=== PATIENT | male | born 1945 | race Two or more races ===

== ENCOUNTER 2024-10-07 18:45 | Inpatient (IN) | payer MEDICARE, OTHER ==
[~2024-10-07] VITALS: Ht 180.3 cm; Wt 81.6 kg
[~2024-10-07 18:45] MED LIST: POVI1MED TP
[2024-10-07 20:00] VITALS: O2SAT 98
[2024-10-07 20:50] LABS: BASOPHILS % (AUTO) 0.5 % (0.0-2.0); EOSINOPHILS % (AUTO) 0.7 % (0.0-6.0); HEMATOCRIT 35 % (39-51); HEMOGLOBIN 11.6 g/dL (13.5-17.5); LYMPHOCYTES # (AUTO) 1.8 K/uL (0.8-4.8); LYMPHOCYTES % (AUTO) 28.2 % (20.0-44.0); MEAN CORPUSCULAR HEMOGLOBIN 33 PG (26.0-33.0); MEAN CORPUSCULAR HGB CONC 34 g/dl (31.0-36.0); MEAN CORPUSCULAR VOLUME 97 fL (80-96); MONOCYTES # (AUTO) 0.4 K/uL (0.1-1.30); MONOCYTES % (AUTO) 6.2 % (2.0-12.0); NEUTROPHILS # (AUTO) 4.1 K/uL (1.8-8.9); NEUTROPHILS % (AUTO) 64.4 % (43.0-81.0); PLATELET COUNT (AUTO) 235 K/uL (150-450); RED BLOOD CELL COUNT(AUTO) 3.55 MIL/uL (4.5-6.0); WHITE BLOOD COUNT (AUTO) 6.4 K/uL (4.3-11.0)
[2024-10-07 21:06] LABS: ALANINE AMINOTRANSFERASE 46 U/L (12-78); ALBUMIN 3.4 g/dL (3.4-5.0); ALCOHOL, BLOOD < 3 mg/dL (0-10); ALKALINE PHOSPHATASE 77 U/L (46-116); ASPARTATE AMINOTRANSFERASE 33 U/L (15-37); BILIRUBIN,DIRECT 0.2 mg/dL (0.0-0.2); BILIRUBIN,TOTAL 0.4 mg/dL (0.2-1.0); CALCIUM, SERUM 8.7 mg/dL (8.5-10.1); CARBON DIOXIDE 28 mmol/L (21-32); CHLORIDE 104 mmol/L (98-107); CREATININE 1.2 mg/dL (0.6-1.3); GLUCOSE 101 mg/dL (74-106); POTASSIUM 4.1 mmol/L (3.5-5.1); SODIUM SERUM 138 mmol/L (136-145); TOTAL PROTEIN, SERUM 7.8 g/dL (6.4-8.2); UREA NITROGEN, BLOOD 33 mg/dL (7-18)
[2024-10-07 21:08] LABS: ACETAMINOPHEN <10 ug/ml (10-30); SALICYLATE 1.3 mg/dL (2.8-20.0)
[2024-10-07 22:13] LABS: APPEARANCE,URINE CLEAR (CLEAR); BILIRUBIN,URINE NEGATIVE (NEGATIVE); BLOOD, URINE TRACE-INTA Ery/uL (NEGATIVE); COLOR,URINE YELLOW (YELLOW); KETONES,URINE NEGATIVE (NEGATIVE); LEUKOCYTE ESTERASE ,URINE NEGATIVE (NEGATIVE); NITRITE, URINE NEGATIVE (NEGATIVE); PROTEIN,URINE NEGATIVE (NEGATIVE); UGLUCOSE NEGATIVE (NEGATIVE); UROBILINOGEN,URINE 0.2 EU/dL (0.2)
[2024-10-07 22:28] LABS: AMPHETAMINE, URINE NEGATIVE (NEGATIVE); BARBITURATE, URINE NEGATIVE (NEGATIVE); BENZODIAZEPINE, URINE NEGATIVE (NEGATIVE); CANNABINOID, URINE NEGATIVE (NEGATIVE); COCCAINE, URINE NEGATIVE (NEGATIVE); OPIATE, URINE NEGATIVE (NEGATIVE); PHENCYCLIDINE SCREEN,URINE NEGATIVE (NEGATIVE)
[2024-10-07 22:56] LABS: ADD URINE CULTURE NO; BACTERIA,URINE None seen /HPF (None Seen); RBC,URINE 0-2 /HPF (0-2); SQUAMOUS EPITHELIAL CELL,UR None Seen /HPF (None Seen); WBC,URINE NONE SEEN /HPF (0-3)
[2024-10-08] MEDS ORDERED: MAGNESIUM HYDROXIDE 30 ML UDC PO PRN (02:30)
[2024-10-08] MEDS ORDERED: ACETAMINOPHEN ES 500 MG TABLET PO PRN (02:30)
[2024-10-08] MEDS ORDERED: ZOLPIDEM TARTRATE 5 MG TABLET PO PRN (02:30)
[2024-10-08] MEDS ORDERED: ACETAMINOPHEN 325 MG TABLET PO PRN ×2 (02:30)
[2024-10-08] MEDS ORDERED: MAG HYDROX/AL HYDROX/SIMETH 30 ML UDC PO PRN (02:30)
[2024-10-08] MEDS: BLOOD SUGAR DIAGNOSTIC 1 EACH STRIP IN ONE (03:00)
[2024-10-08] MEDS ORDERED: QUETIAPINE FUMARATE 25 MG TABLET PO PRN (06:00)
[2024-10-08] MEDS ORDERED: ACET-2030 PO (07:39)
[2024-10-08] MEDS ORDERED: FOLI0.8T3 PO (07:39)
[2024-10-08] MEDS ORDERED: ASCO500T10 PO (07:39)
[2024-10-08] MEDS ORDERED: TAMS-12 PO (07:39)
[2024-10-08] MEDS ORDERED: ACET325T53 PO (07:39)
[2024-10-08] MEDS ORDERED: CYAN-51 PO (07:39)
[2024-10-08] MEDS ORDERED: ATOR40TA PO (07:39)
[2024-10-08] MEDS ORDERED: ENOX40DI9 SQ (07:39)
[2024-10-08] MEDS ORDERED: ASPI-1169 PO (07:39)
[2024-10-08] MEDS ORDERED: POLY17PO4 PO (07:39)
[2024-10-08] MEDS ORDERED: MEMA5TAB PO (07:39)
[2024-10-08] MEDS ORDERED: LISI30TA4 PO (07:39)
[2024-10-08 08:00] VITALS: BP 121/63; TEMP 97.9; O2SAT 99
[2024-10-08] MEDS: LISINOPRIL (10MG) 10 MG TABLET PO SCH (08:46)
[2024-10-08] MEDS: ASPIRIN 81 MG TAB.CHEW PO SCH (08:47)
[2024-10-08] MEDS: MEMANTINE HCL 5 MG TABLET PO SCH (08:47)
[2024-10-08] MEDS: FOLIC ACID 1 MG TABLET PO SCH (08:47)
[2024-10-08] MEDS: ASCORBIC ACID 500 MG TABLET PO SCH (08:47)
[2024-10-08] MEDS: CYANOCOBALAMIN 500 MCG TABLET PO SCH (08:48)
[2024-10-08] MEDS: ENOXAPARIN SODIUM 40 MG/0.4 ML DISP.SYRIN SQ SCH (08:53)
[2024-10-08 16:00] VITALS: BP 110/64; TEMP 98.7; O2SAT 100
[2024-10-08] MEDS: LORAZEPAM 1 MG TABLET PO PRN (18:31)
[2024-10-08 19:53] VITALS: BP 107/69; TEMP 98.3; O2SAT 100
[2024-10-08] MEDS: TAMSULOSIN 0.4 MG CAP.SR.24H PO SCH (21:24)
[2024-10-08] MEDS: ATORVASTATIN 40 MG TABLET PO SCH (21:25)
[2024-10-08] MEDS: POLYETHYLENE GLYCOL 3350 17 GM POWD.PACK PO SCH (21:25)
[2024-10-08] MEDS: DIVALPROEX SODIUM 125 MG CAP.SPRINK PO SCH (21:25)
[2024-10-09 08:00] VITALS: BP 140/73; TEMP 98.1; O2SAT 98
[2024-10-09] MEDS: ESCITALOPRAM OXALATE (10 MG) 10 MG TABLET PO SCH (08:18)
[2024-10-09 16:00] VITALS: BP 99/60; TEMP 97.9; O2SAT 98
[2024-10-09 16:02] LABS: CREATININE 1.1 mg/dL (0.6-1.3)
[2024-10-09 16:07] LABS: ALBUMIN 2.9 g/dL (3.4-5.0); BILIRUBIN,TOTAL 0.3 mg/dL (0.2-1.0); CALCIUM, SERUM 8.8 mg/dL (8.5-10.1); CREATININE 1.1 mg/dL (0.6-1.3); POTASSIUM 4.6 mmol/L (3.5-5.1); TOTAL PROTEIN, SERUM 6.9 g/dL (6.4-8.2)
[2024-10-09 16:09] LABS: CHOLESTEROL 72 mg/dL (<200); HDL CHOLESTEROL 43 mg/dL (40-60); LDL 41 mg/dL (0-99); TRIGLYCERIDES 44 mg/dL (30-150)
[2024-10-09 20:27] VITALS: BP 136/74; TEMP 97.9; O2SAT 99
[2024-10-10 08:00] VITALS: BP 146/67; TEMP 97.7; O2SAT 100
[2024-10-10 16:00] VITALS: BP 107/63; TEMP 97.8; O2SAT 97
[2024-10-10 20:52] VITALS: BP 136/68; TEMP 97.8; O2SAT 98
[2024-10-11 08:00] VITALS: BP 112/65; TEMP 97.8; O2SAT 99
[2024-10-11 16:00] VITALS: BP 123/73; TEMP 98.1; O2SAT 100
[2024-10-11 20:36] VITALS: BP 108/59; TEMP 98.1; O2SAT 97
[2024-10-12 08:00] VITALS: BP 112/67; TEMP 98.6; O2SAT 97
[2024-10-12 16:00] VITALS: BP 100/58; TEMP 98.7; O2SAT 100
[2024-10-12 20:00] VITALS: BP 107/59; TEMP 98.8; O2SAT 99
[2024-10-13 08:00] VITALS: BP 100/57; TEMP 98.6; O2SAT 98
[2024-10-13] MEDS: DIVALPROEX SODIUM 125 MG CAP.SPRINK PO SCH (13:52)
[2024-10-13 16:00] VITALS: BP 107/68; TEMP 98.7; O2SAT 98
[2024-10-13 20:00] VITALS: BP 100/48; TEMP 98.1; O2SAT 98
[2024-10-14 08:00] VITALS: BP 113/73; TEMP 97.9; O2SAT 99
[2024-10-14 16:00] VITALS: BP 101/61; TEMP 97.8; O2SAT 100
[2024-10-14 20:00] VITALS: BP 92/50; TEMP 98; O2SAT 100
[2024-10-15 08:00] VITALS: BP 99/67; TEMP 97.6; O2SAT 98
[2024-10-15 16:00] VITALS: BP 100/59; TEMP 98; O2SAT 98
[2024-10-15] MEDS: MEMANTINE HCL 5 MG TABLET PO SCH (17:00)
[2024-10-15 20:00] VITALS: BP 128/69; TEMP 98.4; O2SAT 98
[2024-10-16 08:00] VITALS: BP 132/78; TEMP 98.2; O2SAT 100
[2024-10-16] MEDS: OLANZAPINE 10 MG VIAL IM ONE (09:19)
[2024-10-16] MEDS: DIVALPROEX SODIUM 125 MG CAP.SPRINK PO SCH (13:00)
[2024-10-16 16:00] VITALS: BP 138/79; TEMP 97.8; O2SAT 97
[2024-10-16 20:33] VITALS: BP 121/58; TEMP 98.1; O2SAT 100
[2024-10-16] MEDS: QUETIAPINE FUMARATE 25 MG TABLET PO SCH (21:00)
[2024-10-17 08:00] VITALS: BP_SYST 104; BP_SYST 115; BP_DIAS 60; BP_DIAS 85; TEMP 97.7; TEMP 98.8; O2SAT 95; O2SAT 96
[2024-10-17 20:41] VITALS: BP 117/64; TEMP 98.3; O2SAT 98
[2024-10-17] MEDS: QUETIAPINE FUMARATE 25 MG TABLET PO SCH (21:32)
[2024-10-18 08:00] VITALS: BP 131/79; TEMP 98.7; O2SAT 100
[2024-10-18 12:00] VITALS: BP 100/58; TEMP 98; O2SAT 98
[2024-10-18 20:18] VITALS: BP 126/60; TEMP 98; O2SAT 98
[2024-10-19 08:00] VITALS: BP 113/59; TEMP 98.7; O2SAT 97
[2024-10-19] MEDS: QUETIAPINE FUMARATE 25 MG TABLET PO SCH ×2 (09:24→21:19)
[2024-10-19 16:00] VITALS: BP 117/61; TEMP 98.1; O2SAT 100
[2024-10-19 20:15] VITALS: BP 125/54; TEMP 98.4; O2SAT 99
[2024-10-20 08:00] VITALS: BP 125/75; TEMP 98.6; O2SAT 99
[2024-10-20 16:00] VITALS: BP 100/60; TEMP 98.6; O2SAT 99
[2024-10-20 20:13] VITALS: BP 118/56; TEMP 98.4; O2SAT 100
[2024-10-21 08:00] VITALS: BP 135/67; TEMP 97.5; O2SAT 100
[2024-10-21 08:18] VITALS: BP 135/67
== END 2024-10-21 14:30 | DRG 885 ==
LOC: ER 18:49 → GPS 10-08 01:22
PROVIDERS: ADMIT Psychiatry & Neurology Psychiatry; ATTEND Internal Medicine
DX: F39 Unspecified mood [affective] disorder (principal); F03.911 Unspecified dementia, unspecified severity, with agitation; F03.92 Unspecified dementia, unspecified severity, with psychotic disturbance; G93.40 Encephalopathy, unspecified; N40.0 Benign prostatic hyperplasia without lower urinary tract symptoms; E78.5 Hyperlipidemia, unspecified; D63.8 Anemia in other chronic diseases classified elsewhere; E11.9 Type 2 diabetes mellitus without complications; I11.9 Hypertensive heart disease without heart failure; Z91.81 History of falling; Z91.199 Patient's noncompliance with other medical treatment and regimen due to unspecified reason; M50.30 Other cervical disc degeneration, unspecified cervical region
CPT/HCPCS: 36415; 80048-TC; 80053-TC; 80061-TC; 80076-TC; 80164-TC; 81001; 82565-TC; 82962-TC; 85025-TC; 87081-TC; G0480; J1650; J3490

== ENCOUNTER 2025-03-04 21:38 | Inpatient (IN) | payer MEDICARE, OTHER ==
[~2025-03-04] VITALS: Ht 177.8 cm; Wt 61.2 kg
[~2025-03-04 21:38] MED LIST changes: +ACET-2030 PO; +ACET325T53 PO; +ASCO500T10 PO; +ASPI-1169 PO; +ATOR40TA PO; +CYAN-51 PO; +ENOX40DI9 SQ; +FOLI0.8T3 PO; +LISI30TA4 PO; +MEMA5TAB PO; +POLY17PO4 PO; +TAMS-12 PO
[2025-03-04 22:54] LABS: BASOPHILS % (AUTO) 0.7 % (0.0-2.0); EOSINOPHILS # (AUTO) 0.4 K/uL (0.0-0.7); EOSINOPHILS % (AUTO) 7.8 % (0.0-6.0); HEMATOCRIT 38 % (39-51); HEMOGLOBIN 12.2 g/dL (13.5-17.5); LYMPHOCYTES # (AUTO) 1.5 K/uL (0.8-4.8); MEAN CORPUSCULAR HEMOGLOBIN 33 PG (26.0-33.0); MEAN CORPUSCULAR HGB CONC 32 g/dl (31.0-36.0); MEAN CORPUSCULAR VOLUME 101 fL (80-96); MONOCYTES # (AUTO) 0.3 K/uL (0.1-1.30); MONOCYTES % (AUTO) 7.1 % (2.0-12.0); NEUTROPHILS # (AUTO) 2.5 K/uL (1.8-8.9); NEUTROPHILS % (AUTO) 53.4 % (43.0-81.0); PLATELET COUNT (AUTO) 148 K/uL (150-450); RED BLOOD CELL COUNT(AUTO) 3.73 MIL/uL (4.5-6.0); RED CELL DISTRIBUTION WIDTH 13.6 % (11.5-15.0); WHITE BLOOD COUNT (AUTO) 4.8 K/uL (4.3-11.0)
[2025-03-04 23:05] LABS: CHLORIDE 98 mmol/L (98-107); POTASSIUM 4.1 mmol/L (3.5-5.1); SODIUM SERUM 134 mmol/L (136-145)
[2025-03-04 23:06] LABS: CALCIUM, SERUM 8.6 mg/dL (8.5-10.1); CARBON DIOXIDE 28 mmol/L (21-32); CREATININE 0.9 mg/dL (0.6-1.3); GLUCOSE 122 mg/dL (74-106); UREA NITROGEN, BLOOD 19 mg/dL (7-18)
[2025-03-04 23:08] LABS: ALANINE AMINOTRANSFERASE 26 U/L (12-78); ALBUMIN 3.2 g/dL (3.4-5.0); ALKALINE PHOSPHATASE 53 U/L (46-116); ASPARTATE AMINOTRANSFERASE 23 U/L (15-37); BILIRUBIN,DIRECT 0.1 mg/dL (0.0-0.2); BILIRUBIN,TOTAL 0.3 mg/dL (0.2-1.0); TOTAL PROTEIN, SERUM 7.8 g/dL (6.4-8.2)
[2025-03-04 23:09] LABS: ACETAMINOPHEN <10 ug/ml (10-30); SALICYLATE 0.7 mg/dL (2.8-20.0)
[2025-03-04 23:21] LABS: ALCOHOL, BLOOD < 3 mg/dL (0-10)
[2025-03-04 23:42] LABS: APPEARANCE,URINE CLEAR (CLEAR); BILIRUBIN,URINE NEGATIVE (NEGATIVE); BLOOD, URINE 2+ Ery/uL (NEGATIVE); COLOR,URINE YELLOW (YELLOW); KETONES,URINE NEGATIVE (NEGATIVE); LEUKOCYTE ESTERASE ,URINE NEGATIVE (NEGATIVE); NITRITE, URINE NEGATIVE (NEGATIVE); PROTEIN,URINE NEGATIVE (NEGATIVE); UGLUCOSE NEGATIVE (NEGATIVE); UROBILINOGEN,URINE 0.2 EU/dL (0.2)
[2025-03-05 00:01] LABS: AMPHETAMINE, URINE NEGATIVE (NEGATIVE); BARBITURATE, URINE NEGATIVE (NEGATIVE); BENZODIAZEPINE, URINE NEGATIVE (NEGATIVE); CANNABINOID, URINE NEGATIVE (NEGATIVE); COCCAINE, URINE NEGATIVE (NEGATIVE); OPIATE, URINE NEGATIVE (NEGATIVE); PHENCYCLIDINE SCREEN,URINE NEGATIVE (NEGATIVE)
[2025-03-05] MEDS ORDERED: LORATADINE 10 MG TABLET ONE (00:55)
[2025-03-05] MEDS: LORATADINE 10 MG TABLET PO SCH (01:03)
[2025-03-05 01:08] LABS: ADD URINE CULTURE NO; BACTERIA,URINE Few /HPF (None Seen); SQUAMOUS EPITHELIAL CELL,UR Few /HPF (None Seen)
[2025-03-05] MEDS ORDERED: ESCI5TAB PO (03:49)
[2025-03-05] MEDS ORDERED: MAGN400O21 PO (03:49)
[2025-03-05] MEDS ORDERED: DIVA250T PO (03:49)
[2025-03-05] MEDS ORDERED: QUET25TA PO (03:49)
[2025-03-05] MEDS ORDERED: AMIN30LI66 PO (03:49)
[2025-03-05] MEDS ORDERED: MAGNESIUM HYDROXIDE 30 ML UDC PO PRN ×2 (05:30→13:00)
[2025-03-05] MEDS ORDERED: ZOLPIDEM TARTRATE 5 MG TABLET PO PRN (05:30)
[2025-03-05] MEDS: BLOOD SUGAR DIAGNOSTIC 1 EACH STRIP IN ONE (05:30)
[2025-03-05] MEDS ORDERED: ACETAMINOPHEN 325 MG TABLET PO PRN ×2 (05:30→13:00)
[2025-03-05] MEDS ORDERED: MAG HYDROX/AL HYDROX/SIMETH 30 ML UDC PO PRN (05:30)
[2025-03-05] MEDS ORDERED: MULT-225 PO (05:43)
[2025-03-05 08:00] VITALS: BP 128/57; TEMP 98; O2SAT 96
[2025-03-05] MEDS: GLUCERNA SHAKE 237 ML CAN PO SCH (09:06)
[2025-03-05] MEDS: DIVALPROEX SODIUM 250 MG TABLET.DR PO SCH (12:57)
[2025-03-05] MEDS ORDERED: ACETAMINOPHEN ES 500 MG TABLET PO PRN (13:00)
[2025-03-05] MEDS: PERMETHRIN 5% CRM 60 GM TUBE TP ONE (14:56)
[2025-03-05 16:00] VITALS: BP 149/84; TEMP 98; O2SAT 96
[2025-03-05] MEDS: TAMSULOSIN 0.4 MG CAP.SR.24H PO SCH (17:03)
[2025-03-05 20:34] VITALS: BP 116/75; TEMP 98.6; O2SAT 97
[2025-03-05] MEDS: ATORVASTATIN 40 MG TABLET PO SCH (21:17)
[2025-03-05] MEDS: QUETIAPINE FUMARATE 25 MG TABLET PO SCH (21:17)
[2025-03-05] MEDS: ZOLPIDEM TARTRATE 5 MG TABLET PO PRN (22:10)
[2025-03-06 07:10] LABS: BASOPHILS % (AUTO) 0.5 % (0.0-2.0); EOSINOPHILS # (AUTO) 0.2 K/uL (0.0-0.7); EOSINOPHILS % (AUTO) 3.6 % (0.0-6.0); HEMATOCRIT 39 % (39-51); HEMOGLOBIN 13.1 g/dL (13.5-17.5); LYMPHOCYTES # (AUTO) 1.6 K/uL (0.8-4.8); LYMPHOCYTES % (AUTO) 25.6 % (20.0-44.0); MEAN CORPUSCULAR HEMOGLOBIN 34 PG (26.0-33.0); MEAN CORPUSCULAR HGB CONC 33 g/dl (31.0-36.0); MEAN CORPUSCULAR VOLUME 100 fL (80-96); MONOCYTES # (AUTO) 0.4 K/uL (0.1-1.30); MONOCYTES % (AUTO) 6.6 % (2.0-12.0); NEUTROPHILS # (AUTO) 4.1 K/uL (1.8-8.9); NEUTROPHILS % (AUTO) 63.7 % (43.0-81.0); PLATELET COUNT (AUTO) 144 K/uL (150-450); RED CELL DISTRIBUTION WIDTH 13.6 % (11.5-15.0); WHITE BLOOD COUNT (AUTO) 6.4 K/uL (4.3-11.0)
[2025-03-06 07:24] LABS: CALCIUM, SERUM 8.6 mg/dL (8.5-10.1); POTASSIUM 4.4 mmol/L (3.5-5.1)
[2025-03-06 08:42] VITALS: BP 100/85; TEMP 97.8; O2SAT 94
[2025-03-06] MEDS: MULTIVITAMINS,THERAGRAN 1 UDTAB TABLET PO SCH (08:53)
[2025-03-06] MEDS: POLYETHYLENE GLYCOL 3350 17 GM POWD.PACK PO SCH (08:53)
[2025-03-06] MEDS: ASPIRIN 81 MG TAB.CHEW PO SCH (08:53)
[2025-03-06] MEDS: CYANOCOBALAMIN 500 MCG TABLET PO SCH (08:53)
[2025-03-06] MEDS: ASCORBIC ACID 500 MG TABLET PO SCH (08:53)
[2025-03-06] MEDS: ENOXAPARIN SODIUM 40 MG/0.4 ML DISP.SYRIN SQ SCH (08:55)
[2025-03-06 16:00] VITALS: BP 101/68; TEMP 98; O2SAT 97
[2025-03-06 20:42] VITALS: BP 101/64; TEMP 98.1; O2SAT 98
[2025-03-07 08:00] VITALS: BP 147/72; TEMP 97.8; O2SAT 100
[2025-03-07] MEDS: DIVALPROEX SODIUM 250 MG TABLET.DR PO SCH (13:19)
[2025-03-07 16:00] VITALS: BP 116/58; TEMP 98.1; O2SAT 100
[2025-03-07 20:00] VITALS: BP 110/64; TEMP 98; O2SAT 95
[2025-03-07] MEDS: Z GUARD REMEDY 4 OZ OINT TP SCH (21:42)
[2025-03-08 08:00] VITALS: BP 123/82; TEMP 97.2; O2SAT 98
[2025-03-08 16:00] VITALS: BP_SYST 113; BP_SYST 128; BP_DIAS 68; BP_DIAS 72; TEMP 97.8; O2SAT 100; O2SAT 96
[2025-03-08] MEDS: QUETIAPINE FUMARATE 25 MG TABLET PO SCH (21:16)
[2025-03-08 21:21] VITALS: BP 123/69; TEMP 97.6; O2SAT 100
[2025-03-09 08:00] VITALS: BP 147/85; TEMP 97.9; O2SAT 98
[2025-03-09 16:06] VITALS: BP 115/84; TEMP 97.7; O2SAT 97
[2025-03-09] MEDS: QUETIAPINE FUMARATE 25 MG TABLET PO PRN (17:20)
[2025-03-09] MEDS: OLANZAPINE 10 MG VIAL IM STA (18:00)
[2025-03-09 20:01] VITALS: BP 136/67; TEMP 98.1; O2SAT 100
[2025-03-09] MEDS: TRAZODONE 50 MG TABLET PO SCH (21:41)
[2025-03-10 07:24] LABS: BASOPHILS % (AUTO) 0.6 % (0.0-2.0); EOSINOPHILS # (AUTO) 0.5 K/uL (0.0-0.7); HEMATOCRIT 39 % (39-51); LYMPHOCYTES # (AUTO) 1.6 K/uL (0.8-4.8); LYMPHOCYTES % (AUTO) 28.1 % (20.0-44.0); MEAN CORPUSCULAR HEMOGLOBIN 34 PG (26.0-33.0); MEAN CORPUSCULAR HGB CONC 34 g/dl (31.0-36.0); MEAN CORPUSCULAR VOLUME 100 fL (80-96); MONOCYTES # (AUTO) 0.7 K/uL (0.1-1.30); MONOCYTES % (AUTO) 11.3 % (2.0-12.0); PLATELET COUNT (AUTO) 138 K/uL (150-450); RED BLOOD CELL COUNT(AUTO) 3.87 MIL/uL (4.5-6.0); RED CELL DISTRIBUTION WIDTH 13.2 % (11.5-15.0); WHITE BLOOD COUNT (AUTO) 5.8 K/uL (4.3-11.0)
[2025-03-10 08:00] VITALS: BP 126/79; TEMP 97.7; O2SAT 99
[2025-03-10 08:16] LABS: VALPROIC ACID 45 ug/mL (50-100)
[2025-03-10 08:24] LABS: ALANINE AMINOTRANSFERASE 20 U/L (12-78); ALBUMIN 2.7 g/dL (3.4-5.0); ALKALINE PHOSPHATASE 51 U/L (46-116); ASPARTATE AMINOTRANSFERASE 29 U/L (15-37); BILIRUBIN,TOTAL 0.5 mg/dL (0.2-1.0); CALCIUM, SERUM 8.6 mg/dL (8.5-10.1); CARBON DIOXIDE 30 mmol/L (21-32); CHLORIDE 104 mmol/L (98-107); CREATININE 0.9 mg/dL (0.6-1.3); GLUCOSE 79 mg/dL (74-106); POTASSIUM 3.9 mmol/L (3.5-5.1); SODIUM SERUM 139 mmol/L (136-145); TOTAL PROTEIN, SERUM 7.2 g/dL (6.4-8.2); UREA NITROGEN, BLOOD 19 mg/dL (7-18)
[2025-03-10] MEDS: QUETIAPINE FUMARATE 25 MG TABLET PO SCH (13:29)
[2025-03-10] MEDS: DIVALPROEX SODIUM 250 MG TABLET.DR PO SCH (13:30)
[2025-03-10 16:00] VITALS: BP 116/90; TEMP 97.8; O2SAT 95
[2025-03-10 20:43] VITALS: BP 98/58; TEMP 98.6; O2SAT 98
[2025-03-11 05:58] VITALS: BP 98/58; TEMP 98.6; O2SAT 98
[2025-03-11 08:00] VITALS: BP 126/69; TEMP 97.9; O2SAT 96
[2025-03-11 16:00] VITALS: BP 135/69; TEMP 97.7; O2SAT 98
[2025-03-11 20:12] VITALS: BP 106/61; TEMP 97.9; O2SAT 98
[2025-03-12 08:00] VITALS: BP 113/69; TEMP 97.7; O2SAT 97
[2025-03-12] MEDS: PERMETHRIN 5% CRM 60 GM TUBE TP ONE (11:55)
[2025-03-12 16:00] VITALS: BP 115/68; TEMP 97.7; O2SAT 97
[2025-03-12 20:33] VITALS: BP 116/62; TEMP 97.9; O2SAT 99
[2025-03-12] MEDS: TRAZODONE 50 MG TABLET PO SCH (21:36)
[2025-03-13 08:00] VITALS: BP 103/57; TEMP 97.8; O2SAT 98
[2025-03-13 16:04] VITALS: BP 108/67; TEMP 98.1; O2SAT 98
[2025-03-13 20:14] VITALS: BP 137/72; TEMP 97.9; O2SAT 99
[2025-03-14 08:00] VITALS: BP 134/83; TEMP 97.3; O2SAT 100
[2025-03-14] MEDS: DIVALPROEX SODIUM 125 MG CAP.SPRINK PO SCH (08:52)
[2025-03-14 15:41] VITALS: BP 119/64; TEMP 98.4; O2SAT 100
[2025-03-14 16:00] VITALS: BP 119/64; TEMP 98.4; O2SAT 100
[2025-03-14 20:07] VITALS: BP 122/73; TEMP 97.3; O2SAT 99
[2025-03-15 08:00] VITALS: BP 147/88; TEMP 97.8; O2SAT 97
[2025-03-15 16:00] VITALS: BP 118/66; TEMP 98.2; O2SAT 100
[2025-03-15 20:22] VITALS: BP 124/76; TEMP 97.5; O2SAT 98
[2025-03-16 08:00] VITALS: BP 133/75; TEMP 98.6; O2SAT 96
[2025-03-16 16:02] VITALS: BP 116/78; TEMP 98.4; O2SAT 100
[2025-03-16] MEDS: HYDROCORTISONE 1% CREAM 28.35 GM TUBE TP SCH (16:53)
[2025-03-16 20:10] VITALS: BP 131/80; TEMP 98.1; O2SAT 100
[2025-03-17 08:00] VITALS: BP 120/68; TEMP 98; O2SAT 96
[2025-03-17] MEDS: DIVALPROEX SODIUM 125 MG CAP.SPRINK PO SCH (09:07)
[2025-03-17] MEDS: DIVALPROEX SODIUM 500 MG TABLET.DR PO SCH (13:20)
[2025-03-17 16:00] VITALS: BP 126/69; TEMP 98.7; O2SAT 96
[2025-03-17 20:00] VITALS: BP 116/60; TEMP 97.3; O2SAT 99
[2025-03-18 08:00] VITALS: BP 128/83; TEMP 98.7; O2SAT 96
[2025-03-18 16:00] VITALS: BP 116/70; TEMP 97.5; O2SAT 95
[2025-03-18 20:55] VITALS: BP 117/70; TEMP 97.9; O2SAT 98
[2025-03-19 08:00] VITALS: BP 120/78; TEMP 97.8; O2SAT 94
[2025-03-19 16:00] VITALS: BP 105/59; TEMP 97.5; O2SAT 98
[2025-03-19 20:08] VITALS: BP 133/66; TEMP 97.9; O2SAT 98
[2025-03-20 08:00] VITALS: BP 119/69; TEMP 97.9; O2SAT 100
[2025-03-20 15:18] VITALS: BP 125/62; TEMP 98.1; O2SAT 100
[2025-03-20 20:41] VITALS: BP 137/55; TEMP 98.1; O2SAT 100
[2025-03-21 08:00] VITALS: BP 138/62; TEMP 98.7; O2SAT 99
== END 2025-03-21 13:40 | DRG 885 ==
LOC: ER 21:45 → GPS 03-05 04:25
PROVIDERS: ADMIT Psychiatry & Neurology Psychosomatic Medicine; ATTEND Nurse Practitioner Family
DX: F39 Unspecified mood [affective] disorder (principal); F03.92 Unspecified dementia, unspecified severity, with psychotic disturbance; E44.0 Moderate protein-calorie malnutrition; E87.1 Hypo-osmolality and hyponatremia; F03.93 Unspecified dementia, unspecified severity, with mood disturbance; Z68.1 Body mass index [BMI] 19.9 or less, adult; G93.40 Encephalopathy, unspecified; F03.918 Unspecified dementia, unspecified severity, with other behavioral disturbance; F29 Unspecified psychosis not due to a substance or known physiological condition; D64.9 Anemia, unspecified; E78.5 Hyperlipidemia, unspecified; E88.09 Other disorders of plasma-protein metabolism, not elsewhere classified; I10 Essential (primary) hypertension; N40.0 Benign prostatic hyperplasia without lower urinary tract symptoms; Z79.899 Other long term (current) drug therapy; Z91.81 History of falling; Z73.6 Limitation of activities due to disability; M50.30 Other cervical disc degeneration, unspecified cervical region; R13.10 Dysphagia, unspecified; R21 Rash and other nonspecific skin eruption; E11.9 Type 2 diabetes mellitus without complications; B86 Scabies
CPT/HCPCS: 36415; 80048-TC; 80053-TC; 80061-TC; 80076-TC; 80164-TC; 81001; 82962-TC; 85025-TC; 87081-TC; 97110-TC; 97116-TC; 97530-TC; G0480; J1650; J3490

== ENCOUNTER 2025-03-29 01:00 | Emergency (ER) | payer MEDICARE, OTHER ==
[~2025-03-29] VITALS: Ht 180.3 cm; Wt 72.6 kg
[~2025-03-29 01:00] MED LIST changes: +AMIN30LI66 PO; -FOLI0.8T3 PO; -LISI30TA4 PO; +MAGN400O21 PO; +MULT-225 PO; -POVI1MED TP
[2025-03-29 01:11] VITALS: BP 140/79; TEMP 98.2; O2SAT 99
== END 2025-03-29 03:41 ==
LOC: ER 01:02
DX: S00.81XA Abrasion of other part of head, initial encounter (principal); E11.9 Type 2 diabetes mellitus without complications; E78.5 Hyperlipidemia, unspecified; F03.918 Unspecified dementia, unspecified severity, with other behavioral disturbance; I10 Essential (primary) hypertension; N40.0 Benign prostatic hyperplasia without lower urinary tract symptoms; Z79.899 Other long term (current) drug therapy; Z79.82 Long term (current) use of aspirin; Z86.79 Personal history of other diseases of the circulatory system; Z87.438 Personal history of other diseases of male genital organs; Z86.59 Personal history of other mental and behavioral disorders; W18.39XA Other fall on same level, initial encounter; Y93.89 Activity, other specified; Y92.89 Other specified places as the place of occurrence of the external cause; Y99.8 Other external cause status
CPT/HCPCS: 70450-TC

== ENCOUNTER 2025-05-08 14:31 | Emergency (ER) | payer MEDICARE, OTHER ==
[~2025-05-08] VITALS: Ht 170.2 cm; Wt 58.1 kg
[2025-05-08] MEDS ORDERED: ACETAMINOPHEN ES 500 MG TABLET PO ONE (15:00)
[2025-05-08] MEDS ORDERED: KETOROLAC TROMETHAMINE 15 MG/ML VIAL ONE (15:21)
[2025-05-08] MEDS ORDERED: ACETAMINOPHEN ES 500 MG TABLET ONE (15:21)
[2025-05-08 15:24] LABS: PLATELET COUNT (AUTO) 192 K/uL (150-450); RED BLOOD CELL COUNT(AUTO) 3.39 MIL/uL (4.5-6.0); RED CELL DISTRIBUTION WIDTH 14.3 % (11.5-15.0); WHITE BLOOD COUNT (AUTO) 7.9 K/uL (4.3-11.0)
[2025-05-08 15:31] LABS: CALCIUM, SERUM 8.0 mg/dL (8.5-10.1); CREATININE 0.9 mg/dL (0.6-1.3); SODIUM SERUM 132.0 mmol/L (136-145); UREA NITROGEN, BLOOD 24.0 mg/dL (7-18)
[2025-05-08] MEDS: KETOROLAC TROMETHAMINE 15 MG/ML VIAL IV ONE (15:36)
[2025-05-08 15:37] LABS: ERYTHROCYTE SEDIMENTATION RATE 75 MM/HR (0-20)
[2025-05-08] MEDS ORDERED: DOXY-326 PO (16:09)
[2025-05-08] MEDS: DOXYCYCLINE 100 MG in IV D5W 100 ML IV ONE (16:49)
[2025-05-08 17:50] VITALS: BP 131/60; TEMP 98.9; O2SAT 98
== END 2025-05-08 17:53 | disposition home or self-care (01) ==
LOC: ER 14:36
DX: L03.115 Cellulitis of right lower limb (principal); I11.9 Hypertensive heart disease without heart failure; E11.9 Type 2 diabetes mellitus without complications; E78.5 Hyperlipidemia, unspecified; F03.90 Unspecified dementia, unspecified severity, without behavioral disturbance, psychotic disturbance, mood disturbance, and anxiety; N40.0 Benign prostatic hyperplasia without lower urinary tract symptoms; Z79.899 Other long term (current) drug therapy
CPT/HCPCS: 99284; 96365; 96375; 73562; 85025; 80048; 85652; 84550; 36415; 86140; J1885; J3490; J7060; A4223

== ENCOUNTER 2025-07-17 17:21 | Inpatient (IN) | payer MEDICARE, OTHER ==
[~2025-07-17] VITALS: Ht 165.1 cm; Wt 42.6 kg
[~2025-07-17 17:21] MED LIST changes: +ACET-2030 GT; -ACET-2030 PO; +ACET325T53 GT; -ACET325T53 PO; +AMIN30LI66 GT; -AMIN30LI66 PO; +ASCO500T10 GT; -ASCO500T10 PO; +DOXY-326 PO; +MULT-225 GT; -MULT-225 PO; +POLY17PO4 GT; -POLY17PO4 PO
[2025-07-17] MEDS ORDERED: ACETAMINOPHEN 650 MG/SUPP.RECT RC ONE (17:44)
[2025-07-17] MEDS: IV NS 0.9% 1,000 ML BAG IV ONE (17:45)
[2025-07-17] MEDS: ACETAMINOPHEN 650 MG/SUPP.RECT RC ONE (17:46)
[2025-07-17 17:53] LABS: PLATELET COUNT (AUTO) 267 K/uL (150-450); RED BLOOD CELL COUNT(AUTO) 3.32 MIL/uL (4.5-6.0); RED CELL DISTRIBUTION WIDTH 20.2 % (11.5-15.0); WHITE BLOOD COUNT (AUTO) 15.1 K/uL (4.3-11.0)
[2025-07-17 17:57] LABS: ABG BASE EXCESS 3.7 mmol/L (-2.0-3.0); ABG OXYGEN SATURATION 92.7 % (94.0-98.0); ABG PCO2 32.4 mmHg (35.0-48.0); ABG PH 7.528 (7.350-7.450); ABG PO2 65.6 mmHg (83.0-108.0); ABG TOTAL HEMOGLOBIN 9.4 G/dL (13.5-17.5); FRACTIONATED INSPIRED OXYGEN 21.0 %; SITE, ABG RIGHT RADIAL
[2025-07-17] MEDS: CEFEPIME 1 GM in IV D5W 50 ML IV ONE (18:00)
[2025-07-17 18:05] LABS: INR 1.14 (0.91-1.10)
[2025-07-17 18:09] LABS: ASPARTATE AMINOTRANSFERASE 83 U/L (15-37); CALCIUM, SERUM 8.5 mg/dL (8.5-10.1); CREATININE 1.7 mg/dL (0.6-1.3); TOTAL PROTEIN, SERUM 7.6 g/dL (6.4-8.2)
[2025-07-17 18:13] LABS: SODIUM SERUM 173 mmol/L (136-145)
[2025-07-17 18:14] LABS: UREA NITROGEN, BLOOD 86 mg/dL (7-18)
[2025-07-17] MEDS: VANCOMYCIN 1 GM in IV D5W 250 ML IV ONE (18:16)
[2025-07-17] MEDS ORDERED: ACET325T53 GT (18:20)
[2025-07-17] MEDS ORDERED: ONDA-97 GT (18:20)
[2025-07-17] MEDS ORDERED: LACT-96 GT (18:20)
[2025-07-17] MEDS ORDERED: SENN-261 GT (18:20)
[2025-07-17] MEDS ORDERED: MELA1TAB47 GT (18:20)
[2025-07-17] MEDS ORDERED: LEVA0.6320 IH (18:20)
[2025-07-17] MEDS ORDERED: ZINC220C6 GT (18:20)
[2025-07-17 18:24] LABS: LACTIC ACID 2.9 mmol/L (0.4-2.0)
[2025-07-17] MEDS ORDERED: Z GUARD REMEDY 4 OZ OINT TP PRN (21:00)
[2025-07-17] MEDS ORDERED: DEXTROSE 50%-WATER 50 ML DISP.SYRIN IV PRN (21:00)
[2025-07-17] MEDS ORDERED: ONDANSETRON HCL/PF 4 MG/2 ML VIAL IVP PRN (21:00)
[2025-07-17] MEDS ORDERED: DOSING PER PHARMACY-VANCOMYCIN IV XX PRN (21:00)
[2025-07-17] MEDS ORDERED: DOSING PER PHARMACY-CEFEPIME IVPB XX PRN (21:00)
[2025-07-17] MEDS ORDERED: CEFEPIME 1 GM in IV D5W 50 ML IV ONE (21:30)
[2025-07-17 22:50] LABS: APPEARANCE,URINE SLIGHTLY CLOUDY (CLEAR); BLOOD, URINE 3+ Ery/uL (NEGATIVE); LEUKOCYTE ESTERASE ,URINE 2+ (NEGATIVE); NITRITE, URINE NEGATIVE (NEGATIVE); UGLUCOSE NEGATIVE (NEGATIVE)
[2025-07-17 22:59] LABS: ADD URINE CULTURE YES; SQUAMOUS EPITHELIAL CELL,UR None Seen /HPF (None Seen)
[2025-07-17] MEDS: HEPARIN SODIUM, PORCINE 5000 UNITS/1 ML VIAL SQ SCH (23:00)
[2025-07-17] MEDS ORDERED: HEPARIN SODIUM, PORCINE 5000 UNITS/1 ML VIAL ONE (23:05)
[2025-07-17] MEDS ORDERED: JEVITY 1.5 CAL LIQUID 1,000 ML BOTTLE GT SCH (23:30)
[2025-07-17] MEDS: IV D5W 1,000 ML IV PRN (23:48)
[2025-07-18] MEDS: BLOOD SUGAR DIAGNOSTIC 1 EACH STRIP IN SCH (00:11)
[2025-07-18] MEDS ORDERED: CEFEPIME 1 GM VIAL ONE (05:57)
[2025-07-18] MEDS: CEFEPIME 1 GM in IV D5W 50 ML IV ONE (06:05)
[2025-07-18 06:10] LABS: PLATELET COUNT (AUTO) 202 K/uL (150-450); RED BLOOD CELL COUNT(AUTO) 3.11 MIL/uL (4.5-6.0); RED CELL DISTRIBUTION WIDTH 20.3 % (11.5-15.0); WHITE BLOOD COUNT (AUTO) 15.2 K/uL (4.3-11.0)
[2025-07-18 06:18] LABS: CALCIUM, SERUM 8.0 mg/dL (8.5-10.1); CREATININE 1.4 mg/dL (0.6-1.3); PHOSPHORUS 3.5 mg/dL (2.5-4.9)
[2025-07-18 06:31] LABS: SODIUM SERUM 172.0 mmol/L (136-145); UREA NITROGEN, BLOOD 81.0 mg/dL (7-18)
[2025-07-18] MEDS ORDERED: ZINC SULFATE 220 MG CAPSULE ONE (09:05)
[2025-07-18] MEDS ORDERED: HEPARIN SODIUM, PORCINE 5000 UNITS/1 ML VIAL ONE (09:05)
[2025-07-18] MEDS ORDERED: MULTIVITAMINS,THERAGRAN 1 UDTAB TABLET ONE (09:05)
[2025-07-18] MEDS ORDERED: ASCORBIC ACID 500 MG TABLET ONE (09:06)
[2025-07-18] MEDS ORDERED: PANTOPRAZOLE 40 MG/PACK PACK ONE (09:06)
[2025-07-18] MEDS: PANTOPRAZOLE 40 MG/PACK PACK GT SCH (09:30)
[2025-07-18] MEDS: ZINC SULFATE 220 MG CAPSULE GT SCH (09:31)
[2025-07-18] MEDS: ASCORBIC ACID 500 MG TABLET GT SCH (09:31)
[2025-07-18] MEDS: MULTIVITAMINS,THERAGRAN 1 UDTAB TABLET GT SCH (09:31)
[2025-07-18] MEDS: PROSTAT (PYXIS) 30 ML UDC GT SCH (12:54)
[2025-07-18 15:45] VITALS: BP 135/94; TEMP 97.3; O2SAT 93
[2025-07-18] MEDS: VANCOMYCIN 750 MG in IV D5W 250 ML IV SCH (19:27)
[2025-07-18 20:00] VITALS: BP 115/64; TEMP 97.5; O2SAT 100
[2025-07-18] MEDS: INSULIN REGULAR, HUMAN 100 UNIT/ML 3 ML VIAL SQ PRN (23:48)
[2025-07-19] VITALS: BP 125/63; TEMP 97.5; O2SAT 95
[2025-07-19 02:59] VITALS: O2SAT 100
[2025-07-19] MEDS: IPRATROPIUM NEB FS 0.5 MG/2.5 ML AMPUL.NEB NEB PRN (03:06)
[2025-07-19] MEDS: ALBUTEROL FS 2.5 MG/3 ML VIAL.NEB NEB PRN (03:07)
[2025-07-19 03:14] VITALS: O2SAT 100
[2025-07-19 04:00] VITALS: BP 111/65; TEMP 97.6; O2SAT 100
[2025-07-19] MEDS: CEFEPIME 1 GM in IV D5W 50 ML IV SCH (06:10)
[2025-07-19 07:01] LABS: PLATELET COUNT (AUTO) 197 K/uL (150-450); RED BLOOD CELL COUNT(AUTO) 3.03 MIL/uL (4.5-6.0); RED CELL DISTRIBUTION WIDTH 19.6 % (11.5-15.0); WHITE BLOOD COUNT (AUTO) 10.1 K/uL (4.3-11.0)
[2025-07-19 07:04] LABS: ASPARTATE AMINOTRANSFERASE 26.0 U/L (15-37); CALCIUM, SERUM 8.0 mg/dL (8.5-10.1); CREATININE 1.2 mg/dL (0.6-1.3); PHOSPHORUS 3.0 mg/dL (2.5-4.9); TOTAL PROTEIN, SERUM 7.0 g/dL (6.4-8.2); UREA NITROGEN, BLOOD 64.0 mg/dL (7-18)
[2025-07-19 07:53] LABS: SODIUM SERUM 161.0 mmol/L (136-145)
[2025-07-19] MEDS: THERAHONEY GEL 1.5 OZ TUBE TP SCH (09:45)
[2025-07-19] MEDS: POTASSIUM CHLORIDE 20 MEQ POWDER PACKET GT SCH (09:49)
[2025-07-19] MEDS: ARGININE/GLUTAMINE/CALCIUM BMB 1 EACH POWD.PACK PEG SCH (17:44)
[2025-07-19] MEDS: IV D5W 1,000 ML IV PRN (18:05)
[2025-07-19] MEDS: GLUCERNA 1.2 1,000 ML BOTTLE PEG PRN (20:23)
[2025-07-19] MEDS: PERMETHRIN 5% CRM 60 GM TUBE TP ONE (20:27)
[2025-07-20 06:46] LABS: PLATELET COUNT (AUTO) 178 K/uL (150-450); RED BLOOD CELL COUNT(AUTO) 3.02 MIL/uL (4.5-6.0); RED CELL DISTRIBUTION WIDTH 19.7 % (11.5-15.0); WHITE BLOOD COUNT (AUTO) 12.0 K/uL (4.3-11.0)
[2025-07-20 07:00] LABS: ASPARTATE AMINOTRANSFERASE 46.0 U/L (15-37); CALCIUM, SERUM 7.7 mg/dL (8.5-10.1); CREATININE 1.0 mg/dL (0.6-1.3); PHOSPHORUS 2.5 mg/dL (2.5-4.9); SODIUM SERUM 148.0 mmol/L (136-145); TOTAL PROTEIN, SERUM 6.6 g/dL (6.4-8.2); UREA NITROGEN, BLOOD 42.0 mg/dL (7-18)
[2025-07-20 08:43] VITALS: BP 110/74; TEMP 97.7; O2SAT 96
[2025-07-20] MEDS: CEFEPIME 2 GM in IV D5W 100 ML IV SCH (17:04)
[2025-07-20 17:32] VITALS: BP 118/69; TEMP 98.1; O2SAT 98
[2025-07-20 20:00] VITALS: BP 109/69; TEMP 97.7; O2SAT 97
[2025-07-21 07:29] LABS: CALCIUM, SERUM 7.7 mg/dL (8.5-10.1); CREATININE 0.7 mg/dL (0.6-1.3); SODIUM SERUM 140.0 mmol/L (136-145); UREA NITROGEN, BLOOD 40.0 mg/dL (7-18)
[2025-07-21 09:27] VITALS: BP 119/65; TEMP 97.7; O2SAT 99
[2025-07-21 16:00] VITALS: BP 99/59; TEMP 97.7; O2SAT 100
[2025-07-21 20:00] VITALS: BP 104/78; TEMP 98.2; O2SAT 100
[2025-07-22 04:00] VITALS: BP 120/75; TEMP 98.3; O2SAT 100
[2025-07-22 08:00] VITALS: BP 113/64; TEMP 98.2; O2SAT 98
[2025-07-22] MEDS ORDERED: CEFE1FRO IV (09:06)
[2025-07-22 16:00] VITALS: BP 97/64; TEMP 97.5; O2SAT 99
[2025-07-22 20:00] VITALS: BP 126/60; TEMP 97.5; O2SAT 99
[2025-07-23 04:00] VITALS: BP 115/57; TEMP 98.2; O2SAT 99
[2025-07-23 08:00] VITALS: BP 121/63; TEMP 99.2; O2SAT 100
[2025-07-23 16:00] VITALS: BP 115/64; TEMP 97.9; O2SAT 97
[2025-07-23 20:00] VITALS: BP 123/69; TEMP 99; O2SAT 97
[2025-07-24] VITALS (12 sets, daily range): BP systolic 121–144; BP diastolic 62–124; TEMP 98–99.9; O2SAT 98–100
[2025-07-24] MEDS: ACETAMINOPHEN 650 MG/20.3 ML UDC GT PRN (06:53)
[2025-07-24 07:46] LABS: PLATELET COUNT (AUTO) 231 K/uL (150-450); RED BLOOD CELL COUNT(AUTO) 2.62 MIL/uL (4.5-6.0); RED CELL DISTRIBUTION WIDTH 20.4 % (11.5-15.0); WHITE BLOOD COUNT (AUTO) 18.4 K/uL (4.3-11.0)
[2025-07-24 07:57] LABS: ASPARTATE AMINOTRANSFERASE 38.0 U/L (15-37); CALCIUM, SERUM 7.5 mg/dL (8.5-10.1); CREATININE 1.3 mg/dL (0.6-1.3); PHOSPHORUS 2.9 mg/dL (2.5-4.9); SODIUM SERUM 130.0 mmol/L (136-145); TOTAL PROTEIN, SERUM 6.0 g/dL (6.4-8.2); UREA NITROGEN, BLOOD 39.0 mg/dL (7-18)
[2025-07-24] MEDS: IV NS 0.9% 1,000 ML IV SCH (12:00)
[2025-07-25 04:00] VITALS: BP 131/87; TEMP 97.5; O2SAT 95
[2025-07-25 08:00] VITALS: BP 125/78; TEMP 98.6; O2SAT 95
[2025-07-25 08:12] LABS: PLATELET COUNT (AUTO) 219 K/uL (150-450); RED BLOOD CELL COUNT(AUTO) 3.24 MIL/uL (4.5-6.0); RED CELL DISTRIBUTION WIDTH 18.8 % (11.5-15.0); WHITE BLOOD COUNT (AUTO) 16.4 K/uL (4.3-11.0)
[2025-07-25 08:28] LABS: ASPARTATE AMINOTRANSFERASE 36.0 U/L (15-37); CALCIUM, SERUM 7.6 mg/dL (8.5-10.1); CREATININE 0.9 mg/dL (0.6-1.3); PHOSPHORUS 2.6 mg/dL (2.5-4.9); SODIUM SERUM 136.0 mmol/L (136-145); TOTAL PROTEIN, SERUM 6.0 g/dL (6.4-8.2); UREA NITROGEN, BLOOD 35.0 mg/dL (7-18)
[2025-07-25] MEDS ORDERED: IV NS 0.9% 1,000 ML IV PRN (14:38)
[2025-07-25 16:00] VITALS: BP 125/74; TEMP 97.9; O2SAT 98
== END 2025-07-25 22:37 | disposition hospice, inpatient (51) | DRG 871 ==
LOC: ER 17:31 → TELE1 19:19 → ICU 21:17 → TELE IN 21:32 → TELE1 07-18 14:55 → MEDSG1 07-19 13:01
PROVIDERS: ADMIT Nurse Practitioner Family; ATTEND Internal Medicine
DX: A41.9 Sepsis, unspecified organism (principal); E43 Unspecified severe protein-calorie malnutrition; J15.9 Unspecified bacterial pneumonia; N17.9 Acute kidney failure, unspecified; F03.92 Unspecified dementia, unspecified severity, with psychotic disturbance; F03.93 Unspecified dementia, unspecified severity, with mood disturbance; G93.40 Encephalopathy, unspecified; N13.6 Pyonephrosis; E87.1 Hypo-osmolality and hyponatremia; E87.20 Acidosis, unspecified; E87.0 Hyperosmolality and hypernatremia; R64 Cachexia; R65.20 Severe sepsis without septic shock; Z66 Do not resuscitate; I11.9 Hypertensive heart disease without heart failure; N40.0 Benign prostatic hyperplasia without lower urinary tract symptoms; M50.30 Other cervical disc degeneration, unspecified cervical region; M89.8X9 Other specified disorders of bone, unspecified site; Z51.5 Encounter for palliative care; E11.9 Type 2 diabetes mellitus without complications; F32.9 Major depressive disorder, single episode, unspecified; Z79.51 Long term (current) use of inhaled steroids; Z79.899 Other long term (current) drug therapy; Z93.1 Gastrostomy status; R13.10 Dysphagia, unspecified; E86.0 Dehydration; R74.01 Elevation of levels of liver transaminase levels; D64.9 Anemia, unspecified; E78.5 Hyperlipidemia, unspecified; E87.6 Hypokalemia; Y95 Nosocomial condition; E88.09 Other disorders of plasma-protein metabolism, not elsewhere classified; E87.8 Other disorders of electrolyte and fluid balance, not elsewhere classified; L89.896 Pressure-induced deep tissue damage of other site; M62.462 Contracture of muscle, left lower leg; M62.461 Contracture of muscle, right lower leg; B86 Scabies; F39 Unspecified mood [affective] disorder; L89.210 Pressure ulcer of right hip, unstageable; L89.100 Pressure ulcer of unspecified part of back, unstageable; B96.5 Pseudomonas (aeruginosa) (mallei) (pseudomallei) as the cause of diseases classified elsewhere
CPT/HCPCS: 31720; 36415; 71045-TC; 76700-TC; 80048-TC; 80053-TC; 80076-TC; 80202-TC; 81001; 82803-TC; 82962-TC; 83605-TC; 83735-TC; 84100-TC; 84484-TC; 85025-TC; 85730-TC; 86850-TC; 87040-TC; 87081-TC; 87086-TC; 87186-TC; 94760-TC; 94799-TC; A4223; A6213; A6403; G0378; J0692; J1644; J1815; J3373; J3374; J7030; J7050; J7060; J7070; P9016